=== PATIENT | male | born 1945 | race Caucasian/White ===

== ENCOUNTER 2018-01-20 15:59 | Observation (INO) ==
[2018-01-20] MEDS ORDERED: ASPIRIN 325 MG TABLET PO STA (16:33)
[2018-01-20] MEDS ORDERED: ALBUTEROL 2.5 MG/3 ML NEB RESP TX STA (16:33)
[2018-01-20 16:42] LABS: Basophils % 0.2 % (0.0-0.8); Eosinophils # 0.1 10*3/uL (0.0-0.87); Eosinophils % 1.3 % (0.00-10.9); Hematocrit 40.7 VOL% (42.0-52.0); Hemoglobin 12.8 GM/DL (14.0-18.0); Immature Granulocytes % 1.3 %; Immature Granulocytes Absolute 0.12 #; Lymphocytes # 1.3 10*3/uL (1.4-4.0); Lymphocytes % 13.5 % (21.2-54.2); Mean Corpuscular HGB Conc 31.4 GM/DL (32-36); Mean Corpuscular Hemoglobin 26 PG (27-34); Mean Corpuscular Volume 82.9 FL (87-102); Mean Platelet Volume 9.3 FL (9.6-12.0); Monocytes # 1.1 10*3/uL (0.11-0.8); Monocytes % 11.8 % (1.7-12.7); Neutrophils # 6.7 10*3/uL (1.4-7.4); Neutrophils % 71.9 % (38.7-73.9); Platelet Count 291 T/CUMM (130-400); Red Blood Count 4.91 MC/CUMM (3.8-5.5); Red Cell Distribution Width 15.7 % (9.3-17.3); White Blood Count 9.3 T/CUMM (4-12)
[2018-01-20] MEDS ORDERED: ASPIRIN 325 MG TABLET ONE (16:58)
[2018-01-20 17:00] LABS: PT Patient Result 10.2 SECS; Partial Thromboplastin Time 24.9 SECS (0-40)
[2018-01-20 17:09] LABS: Albumin 3.1 G/DL (3.4-5.0); Bilirubin,Total 0.7 MG/DL (0.2-1.0); Calcium 8.6 MG/DL (8.5-10.1); Osmolality,Calculated 281.4 MOS/KG (273-304); Potassium 3.8 MMOL/L (3.5-5.1); Total Protein 6.7 G/DL (6.4-8.3); Troponin I Only 0.025 NG/ML (0.00-0.045)
[2018-01-20 17:19] LABS: ABG Base Excess 2.9 MMOL/L (-2.5-2.5); ABG PCO2 35.3 MM HG (35-48); ABG PH 7.478 (7.35-7.45); ABG PO2 94.4 MM HG (80-95)
[2018-01-20] MEDS ORDERED: ALBUTEROL 2.5 MG/3 ML NEB RESP TX PRN (18:26)
[2018-01-20] MEDS ORDERED: NITROGLYCERIN SL 0.4 MG TABLET SL PRN (18:33)
[2018-01-20] MEDS: ALBUTEROL/IPRATROPIUM 3 ML NEB RESP TX SCH (18:58)
[2018-01-20] MEDS ORDERED: MORPHINE 4 MG/1 ML VIAL ONE (19:01)
[2018-01-20] MEDS ORDERED: MORPHINE 2 MG/1 ML SYRINGE IV ONE (19:10)
[2018-01-20] MEDS ORDERED: LIDOCAINE 2% TOP JELLY 20 ML VIAL INTRAURETH ONE ×2 (19:31→21:46)
[2018-01-20] MEDS ORDERED: MORPHINE 4 MG/1 ML VIAL IV PRN (20:47)
[2018-01-20] MEDS: TAMSULOSIN 0.4 MG CAPSULE PO SCH (22:55)
[2018-01-20] MEDS: ACETAMINOPHEN 500 MG TABLET PO PRN (22:56)
[2018-01-20] MEDS: ZALEPLON 5 MG CAPSULE PO PRN (22:56)
[2018-01-20] MEDS: methylPREDNISolone SOD SUC 40 MG/1 ML VIAL IV SCH (22:58)
[2018-01-20] MEDS: LEVOFLOXACIN 500 MG TABLET PO SCH (23:10)
[2018-01-20] MEDS: ENOXAPARIN 40 MG/0.4 ML SYRINGE SUBCUT SCH (23:10)
[2018-01-21] MEDS: ALBUTEROL/IPRATROPIUM 3 ML NEB RESP TX SCH ×3 (00:50→13:56)
[2018-01-21 01:45] LABS: Basophils % 0.1 % (0.0-0.8); Eosinophils % 0.5 % (0.00-10.9); Hematocrit 35.1 VOL% (42.0-52.0); Hemoglobin 11.6 GM/DL (14.0-18.0); Immature Granulocytes % 0.7 %; Immature Granulocytes Absolute 0.06 #; Lymphocytes # 0.5 10*3/uL (1.4-4.0); Lymphocytes % 5.8 % (21.2-54.2); Mean Corpuscular Hemoglobin 27 PG (27-34); Mean Corpuscular Volume 80.3 FL (87-102); Mean Platelet Volume 9.5 FL (9.6-12.0); Monocytes # 0.4 10*3/uL (0.11-0.8); Monocytes % 4.6 % (1.7-12.7); Neutrophils # 7.4 10*3/uL (1.4-7.4); Neutrophils % 88.3 % (38.7-73.9); Platelet Count 253 T/CUMM (130-400); Red Blood Count 4.37 MC/CUMM (3.8-5.5); Red Cell Distribution Width 15.6 % (9.3-17.3); White Blood Count 8.3 T/CUMM (4-12)
[2018-01-21 02:17] LABS: Albumin 2.6 G/DL (3.4-5.0); Bilirubin,Total 0.6 MG/DL (0.2-1.0); Calcium 8.2 MG/DL (8.5-10.1); Osmolality,Calculated 283.4 MOS/KG (273-304); Potassium 4.1 MMOL/L (3.5-5.1); Total Protein 5.3 G/DL (6.4-8.3)
[2018-01-21] MEDS: methylPREDNISolone SOD SUC 40 MG/1 ML VIAL IV SCH ×2 (06:02→17:53)
[2018-01-21] MEDS: ROSUVASTATIN 10 MG TABLET PO SCH (09:19)
[2018-01-21] MEDS: ASPIRIN EC 325 MG TABLET PO SCH (09:19)
[2018-01-21] MEDS: FLUTICASONE 50 MCG NASAL SPRAY 16 GM BOTTLE BOTH NARES SCH (09:19)
[2018-01-21] MEDS: DUTASTERIDE 0.5 MG CAPSULE PO SCH (09:19)
[2018-01-21] MEDS: GABAPENTIN 100 MG CAPSULE PO SCH (09:19)
[2018-01-21] MEDS: FAMOTIDINE 20 MG TABLET PO SCH (09:20)
[2018-01-21] MEDS: MULTIVITAMIN (CENTRUM) TABLET PO SCH (09:20)
[2018-01-21] MEDS: TAMSULOSIN 0.4 MG CAPSULE PO SCH ×2 (09:20→21:35)
[2018-01-21] MEDS: PANTOPRAZOLE 40 MG TABLET PO SCH (09:20)
[2018-01-21] MEDS: ROFLUMILAST 500 MCG TABLET PO SCH (09:20)
[2018-01-21] MEDS: ACETAMINOPHEN 500 MG TABLET PO PRN ×2 (09:52→21:38)
[2018-01-21] MEDS: ISOSORBIDE MONONITRATE 30 MG TABLET PO SCH (11:57)
[2018-01-21] MEDS ORDERED: LEVALBUTEROL 1.25 MG/3 ML NEB RESP TX PRN (19:00)
[2018-01-21] MEDS: LEVOFLOXACIN 500 MG TABLET PO SCH (21:35)
[2018-01-21] MEDS: ENOXAPARIN 40 MG/0.4 ML SYRINGE SUBCUT SCH (21:36)
[2018-01-21] MEDS: ZALEPLON 5 MG CAPSULE PO PRN (21:38)
[2018-01-22 03:53] LABS: Basophils % 0.1 % (0.0-0.8); Hematocrit 31.1 VOL% (42.0-52.0); Immature Granulocytes % 1.1 %; Immature Granulocytes Absolute 0.12 #; Lymphocytes # 0.6 10*3/uL (1.4-4.0); Lymphocytes % 5.4 % (21.2-54.2); Mean Corpuscular HGB Conc 32.2 GM/DL (32-36); Mean Corpuscular Hemoglobin 27 PG (27-34); Mean Corpuscular Volume 82.5 FL (87-102); Mean Platelet Volume 9.8 FL (9.6-12.0); Monocytes # 0.6 10*3/uL (0.11-0.8); Monocytes % 5.4 % (1.7-12.7); Neutrophils # 9.4 10*3/uL (1.4-7.4); Platelet Count 259 T/CUMM (130-400); Red Blood Count 3.77 MC/CUMM (3.8-5.5); Red Cell Distribution Width 15.6 % (9.3-17.3); White Blood Count 10.7 T/CUMM (4-12)
[2018-01-22 04:26] LABS: Calcium 7.7 MG/DL (8.5-10.1); Osmolality,Calculated 285.3 MOS/KG (273-304); Potassium 4.4 MMOL/L (3.5-5.1)
[2018-01-22 04:28] LABS: Risk Ratio 1.9
[2018-01-22] MEDS: methylPREDNISolone SOD SUC 40 MG/1 ML VIAL IV SCH (06:43)
[2018-01-22] MEDS: ROSUVASTATIN 10 MG TABLET PO SCH (09:20)
[2018-01-22] MEDS: ISOSORBIDE MONONITRATE 30 MG TABLET PO SCH (09:20)
[2018-01-22] MEDS: TAMSULOSIN 0.4 MG CAPSULE PO SCH (09:20)
[2018-01-22] MEDS: PANTOPRAZOLE 40 MG TABLET PO SCH (09:20)
[2018-01-22] MEDS: GABAPENTIN 100 MG CAPSULE PO SCH (09:21)
[2018-01-22] MEDS: ASPIRIN EC 325 MG TABLET PO SCH (09:21)
[2018-01-22] MEDS: DUTASTERIDE 0.5 MG CAPSULE PO SCH (09:21)
[2018-01-22] MEDS: FAMOTIDINE 20 MG TABLET PO SCH (09:21)
[2018-01-22] MEDS: ROFLUMILAST 500 MCG TABLET PO SCH (09:21)
[2018-01-22] MEDS: MULTIVITAMIN (CENTRUM) TABLET PO SCH (09:21)
[2018-01-22] MEDS: FLUTICASONE 50 MCG NASAL SPRAY 16 GM BOTTLE BOTH NARES SCH (09:22)
[2018-01-22 16:31] VITALS: BP 122/80
== END 2018-01-22 17:39 | disposition home or self-care (01) ==
LOC: N.ED 15:59 → N.EDINP 15:59 → SUATTDRO 17:39 → N.TELEN 18:42
PROVIDERS: ADMIT Internal Medicine; ATTEND Internal Medicine Nephrology